=== PATIENT | male | born 1970 | race Caucasian/White ===

== ENCOUNTER 2021-02-26 06:14 | Emergency (ER) | payer BC ==
[~2021-02-26] VITALS: Ht 180.3 cm; Wt 68.2 kg
--- NOTE | 2021-02-26 06:47 | PHYS DOC ---
Past Medical History Past Surgical History: Other Additional Past Surgical Histo: TENDON REPAIR TO HAND Smoking Status: Former Smoker Alcohol Use: None General Adult EDM: Chief Complaint: SHORTNESS OF BREATH HPI: HPI: Patient is a 51 year old male without pertinent past medical history who presents with chest tightness and shortness of breath since last night. Patient states yesterday he felt like he was running a low-grade fever subjectively. Temperature was not measured. Late last night he began dry heaving due to nausea. He did not vomit. Described the dry heaving as "viole nt". After the dry heaving episodes he began having chest tightness. Worse with inspiration. His nausea and subjective fevers have subsided. Denies cough, runny nose, congestion, sore throat. Denies sick contacts. Denies any Covid contact. Is not vaccinated for Covid. No history of HTN, HLD, DM, smoking, or personal/family history of cardiac issues/CAD. No history of blood clots. No cancer history. Not on blood thinners. No hemoptysis. No leg swelling. No recent surgeries or immobilizations. Review of Systems: Review of Systems: Constitutional: Reports now resolved subjective fevers. Eyes: Denies change in visual acuity. [] HENT: Denies nasal congestion or sore throat. [] Respiratory: Denies cough. Reports shortness of breath Cardiovascular: Reports chest tightness GI: Reports now resolved nausea. Denies abdominal pain, diarrhea, bloody stools. : Denies dysuria. [] Musculoskeletal: Denies back pain or joint pain. [] Integument: Denies rash. [] Neurologic: Denies headache, focal weakness or sensory changes. [] Psychiatric: Denies depression or anxiety. [] Heart Score: C/O Chest Pain: Yes HEART Score for Chest Pain: HEART Score for Chest Pain Response (Comments) Value History Slighlty/Non-Suspicious 0 ECG Normal 0 Age >45 - < 65 1 Risk Factors No Risk Factors 0 Troponin < Normal Limit 0 Total 1 Risk Factors: Risk Factors: none Allergies: Allergies: Allergies Coded Allergies Type Severity Reaction Last Updated Verified No Known Drug Allergies 02/26/21 No Physical Exam: PE: Constitutional: Appears uncomfortable, mild tachypnea. non-toxic. HENT: Normocephalic, atraumatic Cardiovascular:Heart rate regular rhythm, no murmur [] Lungs & Thorax: Mild tachypnea. Clear to auscultation bilaterally. Abdomen: Soft, nondistended. No significant tenderness to palpation. Skin: Warm, dry, no erythema, no rash. [] Back: No tenderness, no CVA tenderness. [] Extremities: No tenderness, no cyanosis, no clubbing, ROM intact, no edema. [] Neurologic: Alert and oriented X 3, normal motor function, normal sensory function, no focal deficits noted. [] Psychologic: Affect normal, judgement normal, mood normal. [] Current Patient Data: Vital Signs: Vital Signs Date Time Temp Pulse Resp B/P (MAP) Pulse Ox O2 Delivery O2 Flow Rate FiO2 02/26/21 06:20 98.6 70 15 162/91 (114) 97 Room Air 98.6 EKG: EKG: Sinus rhythm. Normal axis. Rate 61. QTc 378. IA and QRS intervals normal. No ST elevation or depression. No pathologic Q waves or T wave inversions. [] Radiology/Procedures: Radiology/Procedures: [] Impression: [facility] [id number] [place] [address] IMAGING REPORT Signed PATIENT: LENA BAE ACCOUNT: [id number] : 1970 LOCATION: ER AGE: 51 SEX: M EXAM STATUS: REG ER ORD. PHYSICIAN: HEMAL CHAIDEZ MD REASON: pleuritic chest pain PROCEDURE: CHEST AP ONLY EXAM: AP View of the chest DATE: 02/26/2021 6:38 AM INDICATION: Reason: pleuritic chest pain / Spl. Instructions: / History: COMPARISON: No Prior FINDINGS: The heart is not enlarged. Mediastinal and hilar contours are normal. Patchy opacities left midlung. No pleural effusion or pneumothorax. IMPRESSION: 1. Patchy opacities left midlung may represent consolidative process such as pneumonia. Electronically signed by: Jama Anthony MD (02/26/2021 6:59 AM) [facility] DICTATED and SIGNED BY: JAMA ANTHONY MD DATE: 02/26/21 [id number] [facility] [address] [place] [address] IMAGING REPORT Signed PATIENT: LENA BAE ACCOUNT: [id number] : 1970 LOCATION: ER AGE: 51 SEX: M EXAM STATUS: REG ER ORD. PHYSICIAN: HEMAL CHAIDEZ MD REASON: ? pneumomediastinum/esophageal injury, chest pain after wretching PROCEDURE: CT CHEST WO CONTRAST EXAMINATION: CT THORAX WO (CT CHEST WITHOUT IV CONTRAST) CLINICAL HISTORY: Chest pain after retching with possible pneumomediastinum/esophageal injury Technique: Spiral CT acquisition of the chest from the thoracic inlet to the upper abdomen without contrast. CT Dose Reduction Employed: One or more of the following individualized dose reduction techniques were utilized for this examination: 1. Automated exposure control 2. Adjustment of the mA and/or kV according to patient size 3. Use of iterative reconstruction technique. Comparison: Chest radiograph same day FINDINGS: Lung Parenchyma, Pleura, and Airways: No consolidation. Mild dependent subsegmental atelectasis bilaterally. Probable small old calcified granuloma posterior right lower lobe (series 2 image 34). No pleural effusion. Central airways patent. Lower Neck, Mediastinum, and Heart: Visualized thyroid gland within normal limits. Calcified mediastinal and right hilar lymph nodes, likely related to old granulomatous disease. No pneumomediastinum. Decompressed esophagus suboptimally evaluated. Thoracic aorta and main pulmonary artery normal in caliber. Normal heart size. Bones and Soft Tissues: No acute osseous abnormality. Upper Abdomen: Several hypodense lesions in the partially visualized liver measuring up to 1.2 cm, possibly cysts but incompletely evaluated. Multiple small calcified granulomas in the spleen. IMPRESSION: No evidence of acute cardiopulmonary abnormality, specifically no pneumomediastinum. Electronically signed by: Jacob Sweeney DO (02/26/2021 7:58 AM) [facility] DICTATED and SIGNED BY: JACOB SWEENEY DO DATE: 02/26/21 [id number] 0 Course & Med Decision Making: Course & Med Decision Making Pertinent Labs and Imaging studies reviewed. (See chart for details) Patient is a 51-year-old male who presents with chest tightness, shortness of breath. Had preceding subjective fevers and nausea with dry heaving. Chest pain began during dry heaves. On arrival vital signs are stable, satting well on room air. EKG without evidence of ischemia Ddx includes but not limited to covid, pneumonia, PE, ACS, esophageal injury, ptx. Doubt aortic injury with symmetric pulses, well appearance, pain not typical of aortic injury. CXR, trop, dimer, covid, cmp, cbc ordered for initial evaluation. Ketorolac for initial analgesic. 0647 D-dimer negative. No further work-up for PE. Troponin negative. Given 6 hours of constant symptoms, normal ekg, should be sufficient to rule out IL. Patient is low risk for ACS, HEART =1 due to age. Do not feel any further CAD work-up is indicated in the ED. Chest x-ray with question of a patchy area of left lung, as well as potentially a faint pneumomediastinum raising concern for potential esophageal injury. CT chest will be pursued to further evaluate. 0739 CT reassuring. No pneumonia, occult pneumomediastinum, or pneumothorax seen. With reassuring work up thus far I question if this is a musculoskeletal strain during retching. COVID swabs are pending, but at this time vitals have remained stable. Feel he is safe for discharge. [id number] NAVX Disclaimer: NAVX Disclaimer: This electronic medical record was generated, in whole or in part, using a voice recognition dictation system. Departure Departure Impression: Primary Impression: Chest tightness Disposition: 01 HOME / SELF CARE / HOMELESS Condition: STABLE Referrals: NO PCP (PCP) Additional Instructions: Your work-up has been reassuring. No acute/life-threatening cause was identified for your chest discomfort. For pain tylenol and ibuprofen are best used on a schedule. Please alternate between the two. -Tylenol 1000 mg every 6 hours (do not exceed 4000 mg in one day) -Ibuprofen 600 mg every 6 hours. Take with food. Do not take for more than 1 week. If you develop high fevers, shaking chills, worsening symptoms, or other new/concerning symptoms please return to the emergency department for reevaluation peer If you do not have a PCP, please call the number for the [facility] at [phone]. HEMAL CHAIDEZ MD Feb 26, 2021 06:47
[2021-02-26] MEDS ORDERED: KETOROLAC 30 MG/ML VIAL. IVP ONE (07:00)
--- NOTE | 2021-02-26 07:01 | RAD ---
EXAM: AP View of the chest DATE: 02/26/2021 6:38 AM INDICATION: Reason: pleuritic chest pain / Spl. Instructions: / History: COMPARISON: No Prior FINDINGS: The heart is not enlarged. Mediastinal and hilar contours are normal. Patchy opacities left midlung. No pleural effusion or pneumothorax. IMPRESSION: 1. Patchy opacities left midlung may represent consolidative process such as pneumonia. Electronically signed by: Jama Leal MD (02/26/2021 6:59 AM) [facility]
[2021-02-26 07:02] LABS: BASO % 0 % (0-3); EOS % 0 % (0-3); HEMATOCRIT 40.9 % (39.0-53.0); HEMOGLOBIN 13.5 g/dL (13.0-17.5); LYMPH # 0.3 x10^3/uL (1.0-4.8); LYMPH % 5 % (24-48); MEAN CORPUSCULAR HEMOGLOBIN 30 pg (25-35); MEAN CORPUSCULAR HGB CONC 33 g/dL (31-37); MEAN CORPUSCULAR VOLUME 90 fL (79-100); MONO # 0.7 x10^3/uL (0.0-1.1); MONO % 11 % (0-9); NEUT # 5.5 x10^3/uL (1.8-7.7); NEUT % 83 % (31-73); PLATELET COUNT 225 x10^3/uL (140-400); RED BLOOD COUNT 4.54 x10^6/uL (4.30-5.70); RED CELL DISTRIBUTION WIDTH 12.9 % (11.5-14.5); WHITE BLOOD COUNT 6.6 x10^3/uL (4.0-11.0)
[2021-02-26 07:18] LABS: CALCIUM 8.8 mg/dL (8.5-10.1); CREATININE 0.9 mg/dL (0.7-1.3); GFR 88.6; POTASSIUM 3.9 mmol/L (3.5-5.1)
[2021-02-26 07:24] LABS: ALBUMIN/GLOBULIN RATIO 1.1 (1.0-1.7); TOTAL BILIRUBIN 0.3 mg/dL (0.2-1.0); TOTAL PROTEIN 7.8 g/dL (6.4-8.2)
[2021-02-26] MEDS ORDERED: MORPHINE SULFATE 4 MG/ML INJ. IVP ONE (07:45)
--- NOTE | 2021-02-26 08:01 | RAD ---
EXAMINATION: CT THORAX WO (CT CHEST WITHOUT IV CONTRAST) CLINICAL HISTORY: Chest pain after retching with possible pneumomediastinum/esophageal injury Technique: Spiral CT acquisition of the chest from the thoracic inlet to the upper abdomen without co ntrast. CT Dose Reduction Employed: One or more of the following individualized dose reduction techniques wer e utilized for this examination: 1. Automated exposure control 2. Adjustment of the mA and/or kV ac cording to patient size 3. Use of iterative reconstruction technique. Comparison: Chest radiograph same day FINDINGS: Lung Parenchyma, Pleura, and Airways: No consolidation. Mild dependent subsegmental atelectasis bilat erally. Probable small old calcified granuloma posterior right lower lobe (series 2 image 34). No ple ural effusion. Central airways patent. Lower Neck, Mediastinum, and Heart: Visualized thyroid gland within normal limits. Calcified mediasti nal and right hilar lymph nodes, likely related to old granulomatous disease. No pneumomediastinum. D ecompressed esophagus suboptimally evaluated. Thoracic aorta and main pulmonary artery normal in saeed blanche. Normal heart size. Bones and Soft Tissues: No acute osseous abnormality. Upper Abdomen: Several hypodense lesions in the partially visualized liver measuring up to 1.2 cm, po ssibly cysts but incompletely evaluated. Multiple small calcified granulomas in the spleen. IMPRESSION: No evidence of acute cardiopulmonary abnormality, specifically no pneumomediastinum. Electronically signed by: Jacob Martinez DO (02/26/2021 7:58 AM) [facility]
[2021-02-26 10:00] VITALS: BP 134/70
[2021-02-26 10:50] LABS: % BANDS 4 % (0-9); % LYMPHS 7 % (24-48); % MONOS 6 % (0-10); % SEGS 83 % (35-66); PLT ESTIMATE ADEQUATE (ADEQUATE)
--- NOTE | 2021-02-27 00:02 | EKG ---
[facility] [address] [place] [address] Test Date: 2021-02-26 Test Time: 06:25:35 Pat Name: LENA BAE Department: Room: Gender: Regulatory Compliance Officer: : 1970 Requested By: HEMAL CHAIDEZ Order Number: [id number] Reading MD: Buzz Rae Measurements Intervals [place] Rate: 61 P: 52 NM: 168 QRS: 48 QRSD: 96 T: 34 QT: 370 QTc: 378 Interpretive Statements SINUS RHYTHM NO SPECIFIC ECG ABNORMALITIES RI6.02 No previous ECG available for comparison Electronically Signed On 03-03-2021 14:37:59 [employer] by Buzz Rae
--- NOTE | 2021-02-27 15:43 | NUR ---
IP Informed pt of positive covid test and the need to quarantine for 10 days. Pt verbalized understanding.
== END 2021-02-26 10:03 | disposition home or self-care (01) ==
LOC: ER 06:14
DX: U07.1 COVID-19 (principal); Z87.891 Personal history of nicotine dependence
CPT/HCPCS: 36415; 71045; 71250; 80053; 84484; 85007; 85025; 85379; 93005; 96374; 96375; 99285; J1885; J2270; U0003; U0005